=== PATIENT | female | born 1990 | race Caucasian/White ===

== ENCOUNTER → 2020-06-05 14:29 | Outpatient (CLI) | payer SELFPAY | PROVIDERS: Visit Provider Nurse Practitioner | DX: N94.9 Unspecified condition associated with female genital organs and menstrual cycle (principal) | CPT/HCPCS: 87210 ==

== ENCOUNTER → 2020-06-30 12:24 | Outpatient (CLI) | payer OTHER, SELFPAY | PROVIDERS: Visit Provider Physician Assistant | DX: N89.8 Other specified noninflammatory disorders of vagina (principal) | CPT/HCPCS: 87210 ==

== ENCOUNTER → 2024-07-05 17:14 | Outpatient (CLI) | payer BC, SELFPAY ==
[2024-07-05 18:08] LABS: Influenza A - CEPHEID Flu A NEGATIVE (NEGATIVE); Influenza B - CEPHEID Flu B NEGATIVE (NEGATIVE); Respiratory Syncytial Virus Negative (Negative)
[2024-07-05 18:23] LABS: COVID-19 CEPHEID 4-PLEX PCR Negative (Negative)
== END ==
PROVIDERS: Visit Provider Physician Assistant Surgical
DX: Z20.828 Contact with and (suspected) exposure to other viral communicable diseases (principal); J02.9 Acute pharyngitis, unspecified
CPT/HCPCS: 0241U; 87070